=== PATIENT | male | born 2000 | race Two or more races ===

== ENCOUNTER 2022-09-15 09:18 | Outpatient (CLI) | payer OTHER | END 2022-09-15 09:24 | disposition home or self-care (01) | LOC: MRI 09:18 | PROVIDERS: ATTEND Chiropractor | DX: G40.009 Localization-related (focal) (partial) idiopathic epilepsy and epileptic syndromes with seizures of localized onset, not intractable, without status epilepticus (principal) | CPT/HCPCS: 70553 ==